=== PATIENT | female | born 1990 | race Caucasian/White ===

== ENCOUNTER 2019-11-17 16:30 | Outpatient (CLI) | payer SELFPAY ==
[~2019-11-17] VITALS: Ht 152.4 cm; Wt 64.1 kg
[~2019-11-17 16:30] MED LIST: DOCU240C31 PO; IBUP-1222 PO; OXYC-302 PO
[2019-11-17 17:03] VITALS: BP 117/66
== END 2019-11-17 19:14 | disposition home or self-care (01) ==
LOC: LDOP 16:30
PROVIDERS: ATTEND Obstetrics & Gynecology
DX: O46.92 Antepartum hemorrhage, unspecified, second trimester (principal); O32.1XX0 Maternal care for breech presentation, not applicable or unspecified; Z3A.20 20 weeks gestation of pregnancy
CPT/HCPCS: 76815; 76817; 99201; G0463

== ENCOUNTER 2020-03-31 20:34 | Inpatient (IN) | payer SELFPAY ==
[~2020-03-31] VITALS: Ht 152.4 cm; Wt 83.0 kg
[2020-03-31] MEDS ORDERED: ONDANSETRON 2MG/ML, 2ML IVPush PRN (21:00)
[2020-03-31] MEDS ORDERED: OXYTOCIN 30U/ 0.9% NaCL 500ML 500 ML IV PRN (21:00)
[2020-03-31] MEDS ORDERED: OXYTOCIN 30U/ 0.9% NaCL 500ML 500 ML IV ONE (21:00)
[2020-03-31] MEDS ORDERED: PLEASE ENTER HEIGHT AND WEIGHT MC SCH (21:00)
[2020-03-31] MEDS ORDERED: TERBUTALINE 1 MG/ML, 1ML SQ PRN (21:00)
[2020-03-31] MEDS ORDERED: FENTANYL PF 100 MCG/2ML IV PRN (21:00)
[2020-03-31] MEDS ORDERED: MISOPROSTOL 25 MCG TABLET VG PRN (21:00)
[2020-03-31] MEDS ORDERED: TERBUTALINE 1 MG/ML, 1ML IVPush PRN (21:00)
[2020-03-31] MEDS ORDERED: FENTANYL PF 100 MCG/2ML IVPush PRN (21:00)
[2020-03-31 21:10] VITALS: BP 135/78
[2020-03-31 21:14] LABS: BASOPHILS % (AUTO) 1 % (0-1); EOSINOPHILS % (AUTO) 2 % (1-7); LYMPHOCYTES % (AUTO) 19 % (22-44); MEAN CORPUSCULAR HEMOGLOBIN 26.9 pg (27.0-34.8); MEAN CORPUSCULAR HGB CONC 32.7 g/dL (32.4-35.8); MEAN PLATELET VOLUME 7.5 fL (7.4-10.4); MONOCYTES % (AUTO) 10 % (2-9); NEUTROPHILS % (AUTO) 69 % (42-75); PLATELET COUNT 292 x10^3/uL (130-400); RED BLOOD COUNT 4.41 x10^6/uL (3.82-5.3); RED CELL DISTRIBUTION WIDTH 15.8 % (9.6-15.2)
[2020-03-31 21:21] LABS: MD NO
[2020-03-31] MEDS ORDERED: NEWBORN KIT ONE (21:49)
[2020-03-31] MEDS ORDERED: FENTANYL/BUPIV./NS/PF 250 ML EPIDCONT ONE (22:12)
[2020-03-31] MEDS ORDERED: BUPIVACAINE 0.25% ONE (22:16)
[2020-03-31] MEDS ORDERED: LACTATED RINGERS 1,000 ML IV SCH (23:00)
[2020-03-31] MEDS ORDERED: LACTATED RINGERS 1,000 ML IVBOLUS PRN (23:00)
[2020-03-31] MEDS ORDERED: FENTANYL/BUPIV./NS/PF 250 ML EPIDCONT SCH (23:00)
[2020-03-31] MEDS ORDERED: EPHEDRINE 50 MG/ML, 1ML IVPush PRN (23:00)
[2020-04-01] MEDS ORDERED: OXYTOCIN 30U/ 0.9% NaCL 500ML 500 ML ONE (04:18)
[2020-04-01 05:20] VITALS: BP 111/75
[2020-04-01] MEDS ORDERED: TRANEXAMIC ACID 100 MG/ML, 10ML IV ONE (05:30)
[2020-04-01] MEDS: OXYTOCIN 30U/ 0.9% NaCL 500ML 500 ML IV SCH ×2 (05:30→15:30)
[2020-04-01] MEDS ORDERED: TRANEXAMIC ACID 1,000 MG in SODIUM CHLORIDE 0.9% 100 ML IVPB ONE (05:30)
[2020-04-01] MEDS ORDERED: IBUPROFEN 800 MG TABLET PO PRN (05:30)
[2020-04-01] MEDS ORDERED: METHYLERGONOVINE 0.2 MG/ML IM PRN (05:30)
[2020-04-01] MEDS ORDERED: CARBOPROST TROMETHAMINE 250 MCG/ML, 1ML IM PRN (05:30)
[2020-04-01] MEDS ORDERED: HYDROcodone/APAP 5/325 TABLET PO PRN ×2 (05:30)
[2020-04-01] MEDS ORDERED: ACETAMINOPHEN 325 MG TABLET PO PRN ×2 (05:30)
[2020-04-01] MEDS ORDERED: MISOPROSTOL 200 MCG TABLET PR PRN ×3 (05:30)
[2020-04-01] MEDS ORDERED: BISACODYL 10 MG SUPP PR PRN (05:30)
[2020-04-01] MEDS ORDERED: GLYCERIN ADULT SUPP PR PRN (05:30)
[2020-04-01] MEDS ORDERED: OXYcodone/APAP 5/325MG TABLET PO PRN (05:30)
[2020-04-01] MEDS ORDERED: MISOPROSTOL 200 MCG TABLET SL PRN ×3 (05:30)
[2020-04-01] MEDS ORDERED: MISOPROSTOL 200 MCG TABLET PO PRN ×3 (05:30)
[2020-04-01] MEDS ORDERED: SIMETHICONE 80 MG CHEW TAB PO PRN (05:30)
[2020-04-01] MEDS: DOCUSATE 100 MG CAPSULE PO PRN ×2 (07:33→19:35)
[2020-04-01] MEDS: IBUPROFEN 600 MG TABLET PO PRN ×3 (07:33→19:35)
[2020-04-01 07:35] VITALS: BP 113/66
[2020-04-01] MEDS: PRENATAL VIT/IRON/FA 1 EACH TABLET PO SCH (09:00)
[2020-04-01 11:11] LABS: BASOPHILS % (AUTO) 1 % (0-1); EOSINOPHILS % (AUTO) 1 % (1-7); LYMPHOCYTES % (AUTO) 11 % (22-44); MEAN CORPUSCULAR HEMOGLOBIN 26.8 pg (27.0-34.8); MEAN CORPUSCULAR HGB CONC 32.6 g/dL (32.4-35.8); MEAN PLATELET VOLUME 7.6 fL (7.4-10.4); MONOCYTES % (AUTO) 7 % (2-9); NEUTROPHILS % (AUTO) 82 % (42-75); PLATELET COUNT 251 x10^3/uL (130-400); RED CELL DISTRIBUTION WIDTH 15.7 % (9.6-15.2)
[2020-04-01 11:13] LABS: MD NO
[2020-04-01 12:19] VITALS: BP 114/79
[2020-04-01] MEDS: OXYcodone/APAP 5/325MG TABLET PO PRN ×2 (13:38→19:35)
[2020-04-01 16:01] VITALS: BP 103/66
[2020-04-01 19:42] VITALS: BP 110/70
[2020-04-02 01:05] VITALS: BP 106/70
[2020-04-02] MEDS: OXYTOCIN 30U/ 0.9% NaCL 500ML 500 ML IV SCH ×2 (01:07→11:30)
[2020-04-02] MEDS: OXYcodone/APAP 5/325MG TABLET PO PRN (04:56)
[2020-04-02 08:00] VITALS: BP 104/64
[2020-04-02] MEDS: PRENATAL VIT/IRON/FA 1 EACH TABLET PO SCH (09:00)
[2020-04-02] MEDS ORDERED: IBUP-1223 PO (09:17)
[2020-04-02] MEDS ORDERED: DOCU100C33 PO (09:18)
[2020-04-02] MEDS: DOCUSATE 100 MG CAPSULE PO PRN (09:23)
[2020-04-02] MEDS: IBUPROFEN 600 MG TABLET PO PRN (16:00)
== END 2020-04-02 17:20 | disposition home or self-care (01) | DRG 807 ==
LOC: LDIP 20:34 → UNDOADMIN 20:34 → LDIP 20:37 → 2NW 04-01 05:05
PROVIDERS: ADMIT Obstetrics & Gynecology; ATTEND Obstetrics & Gynecology
PROC: 10E0XZZ Delivery of Products of Conception, External Approach (ICD-10-PCS; principal; 2020-04-01)
PROC: 10907ZC Drainage of Amniotic Fluid, Therapeutic from Products of Conception, Via Natural or Artificial Opening (ICD-10-PCS; 2020-04-01)
PROC: 3E0R3BZ Introduction of Anesthetic Agent into Spinal Canal, Percutaneous Approach (ICD-10-PCS; 2020-04-01)
PROC: 00HU33Z Insertion of Infusion Device into Spinal Canal, Percutaneous Approach (ICD-10-PCS; 2020-04-01)
DX: O76 Abnormality in fetal heart rate and rhythm complicating labor and delivery (principal); Z37.0 Single live birth; Z3A.39 39 weeks gestation of pregnancy; Z90.49 Acquired absence of other specified parts of digestive tract; Z20.828 Contact with and (suspected) exposure to other viral communicable diseases
CPT/HCPCS: 36415; 85025; 86592; 86850; 86900; 87635; G0378; J2590; J3010; J7120